=== PATIENT | male | born 1950 | race Caucasian/White ===

== ENCOUNTER 2018-05-19 10:37 | Day surgery (SDC) | payer OTHER ==
[2018-05-19 11:48] VITALS: BMI 30.1
--- NOTE | 2018-05-19 12:39 | PROC ---
Endoscopy Procedure Endoscopy procedure completed. Please see scanned procedure report.
[2018-05-19 12:48] VITALS: TEMP 98.2
[2018-05-19 14:04] VITALS: BP 111/56; PULSE 61
--- NOTE | 2018-05-20 11:49 | PATH ---
Surgical Pathology Report Patient Name: ANISA VELAZQUEZ [facility]. Rec. #: [id number] /Age/Gender: 1950 (Age: 67) / M Account: [id number] Location: [facility]-ENDOSCOPY Taken: 05/19/2018 Received: 05/19/2018 Reported: 05/20/2018 Physicians: Lazaro Waldron M.D. Specimen(s) Received A: BX DESCENDING COLON POLYP B: RECTAL POLYP Clinical History GI bleeding Postoperative diagnosis: Colon polyp Final Diagnosis A. DESCENDING COLON, POLYP, BIOPSY: TUBULAR ADENOMA. B. RECTUM, POLYP, BIOPSY: HYPERPLASTIC POLYP. Electronically Signed Martine Knott M.D. Gross Description A. Received in formalin, labeled "biopsy polyp descending colon" are 6 casey, irregular portions of soft tissue ranging from 0.1-0.3 cm. in greatest dimension. The specimens are submitted in toto in one cassette. B. Received in formalin, labeled "biopsy rectal polyp" are 3 casey, irregular portions of soft tissue ranging from 0.2-0.4 cm. in greatest dimension. The specimens are submitted in toto in one cassette. DL/05/19/2018 saudi05/19/2018
== END 2018-05-19 14:05 | disposition home or self-care (01) ==
LOC: JASU-ENDO 10:37
PROVIDERS: ATTEND Internal Medicine Gastroenterology
PROC: 0DBP8ZX Excision of Rectum, Via Natural or Artificial Opening Endoscopic, Diagnostic (ICD-10-PCS; 2018-05-19)
PROC: 0DBM8ZX Excision of Descending Colon, Via Natural or Artificial Opening Endoscopic, Diagnostic (ICD-10-PCS; principal; 2018-05-19 12:00)
DX: Z12.11 Encounter for screening for malignant neoplasm of colon (principal)
CPT/HCPCS: 82962